=== PATIENT | female | born 1950 | race Caucasian/White ===

== ENCOUNTER 2016-07-01 11:30 | Emergency (ER) | payer BC ==
[2016-07-01 11:46] VITALS: BMI 26.9
--- NOTE | 2016-07-01 12:11 | DR.GENAD ---
HPI - PCP Primary Care Physician: BELEM MACEDO - HPI Comment HPI Comment: PATIENT IS BEING SICK FOR 4 DAYS . SHE IS HAVING NAUSEA, VOMITING AND DIARRHEA. SHE IA WEAK AND GETTING WORSE, SLIFHR ABDOMINAL CRAMPING. NO FEVER OR DYSURIA. WAS DIZZY, BP ELEVATED AT TIMES BUT LOW TODAY. - Complaint/Symptoms Chief Complaint Doctors Comments: NAUSEA, VOMITING, DIARRHEA TIMES 4 DAYS, BP LOW TODAY. Chief Complaint:: PT C/O " BP IS UP AND DOWN AND I HAVE BEEN HAVING N/V SINCE MONDAY".. Self Treatment fo Chief Complaint: TYLENOL, NYQUIL.. - Nurses notes reviewed Nurses Notes Review: Yes - Source History Provided: Patient - Mode of Arrival Mode of Arrival: Ambulatory - Timing Onset of Chief Complaint: 06/28/16 Came on: Suddenly - Duration Duration: Constant Duration: Days - Severity Severity: Moderate PMH - PMH Past Medical History: Yes Past Medical History: Arthritis, Hyperthyroidism Past Surgical History: Yes Past Surgical History Comment: GALL BLADDER. HYS, LEFT FOOT. LEFT HAND. LEFT HIP , BACK SURGERY , RIGHT PINKY. ], - Family History History of Family Medical Conditions: No - Social History Does patient currently use any type of tobacco product: No Have you used tobacco products in the last 12 months: No Type of Tobacco Use: None Does any household member use tobacco: No Do you use any recreational Drugs:: No Lives With: Family Lives Where: Home - infectious screening In the last 2 months have you had wt loss of >10#?: NO Have you had fever, night sweats or hemotysis?: No Have you traveled outside the country in the last 6 months?: No Isolation: Standard ROS - Review of Systems Constitutional: Weakness, Fatigue, Loss of Appetite Eyes: No Symptoms Reported. negative: Eye Pain, Discharge ENTM: Nose Congestion. negative: Ear Pain, Nose Discharge, Throat Pain Respiratoy: No Symptoms Reported Cardiovascular: No Symptoms Reported Gastrointestinal/Abdominal: Abdominal Pain, Diarrhea, Nausea, Vomiting Neurological: Weakness, Dizziness Musculoskeletal: Muscle Pain Integumentary: Dryness Hematologic/Lymphatic: No Symptoms Reported Endocrine: No Symptoms Reported All Other Systems: Reviewed and Negative PE - Vital Signs Vitals: Temperature 97.7 F Pulse Rate [Standing] 76 Pulse Rate [Sitting] 69 Pulse Rate [Lying] 63 Pulse Rate 85 Respiratory Rate 20 Blood Pressure [Standing] 104/70 Blood Pressure [Sitting] 102/66 Blood Pressure [Lying] 101/60 Blood Pressure 99/67 O2 Sat by Pulse Oximetry 99 - General Limitations: No Limitations General Appearance: Alert - Head Head Exam: Normal Inspection - Eyes Eye exam: Normal Appearance - ENT ENT Exam: Normal External Ear Exam External Ear Exam: Normal External Inspection TM/Canal Exam: Bilateral Normal Nose Exam: Normal Nose Exam Mouth Exam: Normal Inspection Throat Exam: Normal Inspection - Neck Neck Exam: Normal Inspection - Chest Chest Inspection: Symmetric Chest Wall Rise - Respiratory Respiratory Exam: Normal Lung Sounds Bilat Respiratory Exam: Bilateral Clear to Auscultation - Cardiovascular Cardiovascular Exam: Regular Rate, Normal Rhythm, Normal Heart Sounds - Abdominal Exam Abdominal Exam: Normal Bowel Sounds, Soft, Tenderness Abdominal Tenderness: Diffuse, Moderate - Back Back Exam: Normal Inspection - Neurologic Neurological Exam: Alert, Oriented X3 - Psychiatric Psychiatric Exam: Normal Affect, Normal Mood - Skin Skin Exam: Dry MDM - Differential Diagnosis Differential Diagnosis: ABDOMINAL PAIN, DEHYDRATION, GASTROENTERITIS, UTI, BOWEL OBSTRUCTION Course - Treatment Treatment: SEE ORDERS. PATIENT AFTER 2L OF FLUID AND ZOFRAN WAS NOT FEELING BETTER. PLANING TO DO CT. WAS TOLD PATIENT LEFT WITHOUT TELLING THE US. - Education/Counseling Education/Counseling: Patient, Education Educated On: Treatment, Diagnosis ROR - Labs Reviewed Laboratory Results Reviewed?: Yes Result Diagrams: 07/01/16 12:03 07/01/16 12:03 Laboratory: WBC 4.1 X10^3/uL (3.6-10.0) 07/01/16 12:03 RBC 3.87 X10^6/uL (3.5-5.4) 07/01/16 12:03 Hgb 11.6 g/dL (12.0-16.0) L 07/01/16 12:03 Hct 34.4 % (36.0-47.0) L 07/01/16 12:03 MCV 88.8 fL (80.0-100.0) 07/01/16 12:03 MCH 29.9 pg (27.0-34.0) 07/01/16 12:03 MCHC 33.7 g/dL (33.0-35.0) 07/01/16 12:03 RDW 13.7 % (11.6-16.5) 07/01/16 12:03 Plt Count 128 X10^3/uL (150.0-450.0) L 07/01/16 12:03 MPV 10.1 fL (7.4-11.0) 07/01/16 12:03 Neut % 51.9 % (42.0-75.0) 07/01/16 12:03 Lymph % 30.7 % (21.0-51.0) 07/01/16 12:03 [place] % 13.9 % (0.0-13.0) H 07/01/16 12:03 Eos % 2.5 % (0.9-2.9) 07/01/16 12:03 Baso % 1.0 % (0.2-1.0) 07/01/16 12:03 Neut # 2.2 x10^3/uL (2.2-4.8) 07/01/16 12:03 Lymph # 1.3 X10^3/uL (1.3-2.9) 07/01/16 12:03 [place] # 0.6 x10^3/uL (0.3-0.8) 07/01/16 12:03 Eos # 0.1 x10^3/uL (0.0-0.2) 07/01/16 12:03 Baso # 0.0 X10^3/uL (0.0-0.1) 07/01/16 12:03 Absolute Nucleated RBC 0.0 /100WBC 07/01/16 12:03 Sodium 141 mmol/L (136-145) 07/01/16 12:03 Corrected Sodium TNP 07/01/16 12:03 Potassium 4.0 mmol/L (3.5-5.1) 07/01/16 12:03 Chloride 104 mmol/L (98-107) 07/01/16 12:03 Carbon Dioxide 29.4 mmol/L (21-32) 07/01/16 12:03 BUN 35 mg/dL (7-18) H 07/01/16 12:03 Creatinine 1.19 mg/dL (0.55-1.02) H 07/01/16 12:03 Est GFR (MDRD) Af Amer > 60 (>60) 07/01/16 12:03 Est GFR (MDRD) Non-Af 50 (>60) L 07/01/16 12:03 Glucose 103 mg/dL (65-99) H 07/01/16 12:03 Calcium 8.7 mg/dL (8.5-10.1) 07/01/16 12:03 Corrected Calcium TNP 07/01/16 12:03 Total Bilirubin 0.40 mg/dL (0.2-1.0) 07/01/16 12:03 AST 37 Units/L (15-37) 07/01/16 12:03 ALT 52 Units/L (12-78) 07/01/16 12:03 Alkaline Phosphatase 103 Units/L (46-116) 07/01/16 12:03 Total Protein 7.1 g/dL (6.4-8.2) 07/01/16 12:03 Albumin 3.4 g/dL (3.4-5.0) 07/01/16 12:03 Globulin 3.7 g/dL (2.5-4.5) 07/01/16 12:03 Albumin/Globulin Ratio 0.9 Ratio (1.1-2.1) L 07/01/16 12:03 Amylase 42 Units/L (25-115) 07/01/16 12:03 Lipase 160 Units/L (73-393) 07/01/16 12:03 Specimen Type Clean catch urine 07/01/16 12:04 Urine Color Yellow (YELLOW) 07/01/16 12:04 Urine Appearance Clear (CLEAR) 07/01/16 12:04 Urine pH 5.0 (5.0 - 8.0) 07/01/16 12:04 Ur Specific [place] 1.015 (1.000-1.030) 07/01/16 12:04 Urine Protein 2+ (NEGATIVE) 07/01/16 12:04 Urine Glucose (UA) Negative (NEGATIVE) 07/01/16 12:04 Urine Ketones Negative (NEGATIVE) 07/01/16 12:04 Urine Occult Blood 1+ (NEGATIVE) 07/01/16 12:04 Urine Nitrite Negative (NEGATIVE) 07/01/16 12:04 Urine Bilirubin Negative (NEGATIVE) 07/01/16 12:04 Urine Urobilinogen 1+ (NORMAL) 07/01/16 12:04 Ur Leukocyte Esterase Negative (NEGATIVE) 07/01/16 12:04 Urine RBC Rare /HPF (NEGATIVE) 07/01/16 12:04 Urine WBC 0 - 3 /HPF (NEGATIVE) 07/01/16 12:04 Ur Squamous Epith Cells Rare /HPF (NEGATIVE) 07/01/16 12:04 Amorphous Sediment Trace /HPF (NEGATIVE) 07/01/16 12:04 Urine Bacteria Trace /HPF (NEGATIVE) 07/01/16 12:04 Ur Culture Indicated? No/not indicated 07/01/16 12:04 - XRAY XRAY Interpreted by: Radiologist XRAY Findings: DISCUSS REPORT WITH PATIENT. - Diagnosis Discharge Problem: Gastroenteritis, Dehydration Abdominal pain Qualifiers: Abdominal location: generalized Qualified Code(s): R10.84 - Generalized abdominal pain - Discharge Plan Disposition: 07 AGAINST MEDICAL ADVICE Condition: Stable - Follow ups/Referrals Follow ups/Referrals: CORY PATRICIA [Primary Care Provider] - 3 days - Instructions
[2016-07-01] MEDS ORDERED: NS 1000 ML 1,000 ML IV ONE ×2 (12:12→14:14)
[2016-07-01] MEDS ORDERED: ZOFRAN INJ 4 MG VIAL IVP ONE (12:13)
[2016-07-01] MEDS ORDERED: NS 1000 ML 1,000 ML ONE (12:17)
[2016-07-01] MEDS ORDERED: ZOFRAN INJ 4 MG VIAL ONE (12:18)
[2016-07-01 12:21] LABS: BILIRUBIN,URINE NEGATIVE (NEGATIVE); BLOOD/HEMOGLOBIN,URINE 1+ (NEGATIVE); GLUCOSE, URINE NEGATIVE (NEGATIVE); KETONES,URINE NEGATIVE (NEGATIVE); LEUKOCYTE ESTERASE ,URINE NEGATIVE (NEGATIVE); NITRITES,URINE NEGATIVE (NEGATIVE); PROTEIN,URINE 2+ (NEGATIVE); UROBILINOGEN,URINE 1+ (NORMAL)
[2016-07-01 12:32] LABS: COLOR,URINE YELLOW (YELLOW)
[2016-07-01 12:33] LABS: APPEARANCE,URINE CLEAR (CLEAR)
[2016-07-01 12:36] LABS: AMORPHOUS SEDIMENT,UR TRACE /HPF (NEGATIVE); BACTERIA,URINE TRACE /HPF (NEGATIVE); RBC,URINE RARE /HPF (NEGATIVE); SQUAMOUS EPITHELIAL CELL,UR RARE /HPF (NEGATIVE)
[2016-07-01 12:57] LABS: ALANINE AMINOTRANSFERASE 52 Units/L (12-78); ALBUMIN 3.4 g/dL (3.4-5.0); ALKALINE PHOSPHATASE 103 Units/L (46-116); AMYLASE 42 Units/L (25-115); ASPARTATE AMINO TRANSFERASE 37 Units/L (15-37); BLOOD UREA NITROGEN 35 mg/dL (7-18); CALCIUM 8.7 mg/dL (8.5-10.1); CARBON DIOXIDE 29.4 mmol/L (21-32); CHLORIDE 104 mmol/L (98-107); CREATININE 1.19 mg/dL (0.55-1.02); GLUCOSE 103 mg/dL (65-99); LIPASE 160 Units/L (73-393); SODIUM 141 mmol/L (136-145); TOTAL PROTEIN 7.1 g/dL (6.4-8.2); eGFR BLACK RACES > 60 (>60); eGFR NON BLACK RACES 50 (>60)
[2016-07-01 13:04] LABS: EOSINOPHILS # (AUTO) 0.1 x10^3/uL (0.0-0.2); EOSINOPHILS % (AUTO) 2.5 % (0.9-2.9); HEMATOCRIT 34.4 % (36.0-47.0); HEMOGLOBIN 11.6 g/dL (12.0-16.0); LYMPHOCYTES # (AUTO) 1.3 X10^3/uL (1.3-2.9); LYMPHOCYTES % (AUTO) 30.7 % (21.0-51.0); MEAN CORPUSCULAR HEMOGLOBIN 29.9 pg (27.0-34.0); MEAN CORPUSCULAR HGB CONC 33.7 g/dL (33.0-35.0); MEAN CORPUSCULAR VOLUME 88.8 fL (80.0-100.0); MEAN PLATELET VOLUME 10.1 fL (7.4-11.0); MONOCYTES # (AUTO) 0.6 x10^3/uL (0.3-0.8); MONOCYTES % (AUTO) 13.9 % (0.0-13.0); NEUTROPHILS # (AUTO) 2.2 x10^3/uL (2.2-4.8); NEUTROPHILS % (AUTO) 51.9 % (42.0-75.0); PLATELET COUNT 128 X10^3/uL (150.0-450.0); RED BLOOD COUNT 3.87 X10^6/uL (3.5-5.4); RED CELL DISTRIBUTION WIDTH 13.7 % (11.6-16.5); WHITE BLOOD COUNT 4.1 X10^3/uL (3.6-10.0)
[2016-07-01 14:33] VITALS: BP 101/60
== END 2016-07-01 15:38 | disposition left against medical advice (07) ==
LOC: ER 12:00 → EDBD 12:00 → ER 15:38
DX: K52.89 Other specified noninfective gastroenteritis and colitis (principal); E86.0 Dehydration; R10.84 Generalized abdominal pain
CPT/HCPCS: 36415; 80053; 81001; 82150; 83690; 85025; 96365; 96367; 96374; 99283; A4222; J2405